=== PATIENT | male | born 1960 | race Caucasian/White ===

== ENCOUNTER 2016-09-12 06:04 | Day surgery (SDC) | payer BC ==
[2016-09-05 15:02] VITALS: BMI 41.5
--- NOTE | 2016-09-11 09:57 | HP ---
[facility] - Chief Complaint Chief Complaint: right knee pain - Past Medical History Allergies/Adverse Reactions: Allergies Allergy/AdvReac Type Severity Reaction Status Date / Time No Known Allergies Allergy Verified 09/05/16 15:02 - Current Medications Current Medications: Medication Instructions Recorded NK [No Known Home Medication] 09/05/16 [facility]ellite Physical Exam - Physical Examination General Appearance: Well Nourished, Well Developed, Alert & Oriented x3 ENT: Clear Lung: Normal air movement Heart: Regular rate & rhythm Extremities: Other (right knee- + swelling, + ttp, decr rom, nvi xrays show severe medial djd) Neurological: Intact, Alert, Oriented [facility]ellite Impression/Plan - Impression/Plan Impression: right knee medial djd Operative Procedure: right medial darrick ukr Date to be Performed: 09/12/16
[2016-09-12] MEDS ORDERED: GABAPENTIN 300 MG CAPSULE (FP) PO ONE (06:21)
[2016-09-12] MEDS ORDERED: ROPIVICAINE 0.2%/MORPH PF/KETOROLAC - 51ML DISP.SYRINGE IA ONE ×2 (06:21→09:40)
[2016-09-12] MEDS ORDERED: TRANEXAMIC ACID 1000 MG/10 ML VIAL IVPUSH ONE (06:21)
[2016-09-12] MEDS ORDERED: CELECOXIB 200 MG CAPSULE PO ONE (06:21)
[2016-09-12] MEDS ORDERED: oxyCODONE HCL 10 MG SUSTAINED ACTING TABLET PO ONE (06:21)
[2016-09-12] MEDS ORDERED: CEFAZOLIN 2 GM in DEXTROSE 5%-WATER - 50 ML IVPB ONE (06:21)
[2016-09-12] MEDS ORDERED: ROPIVACAINE HCL 0.5% 30ML VIAL ONE (06:34)
[2016-09-12] MEDS ORDERED: DEXAMETHASONE SOD PHOSPHATE/PF 10 MG/ML SDV ONE (06:34)
[2016-09-12] MEDS ORDERED: MIDAZOLAM HCL 2 MG/2 ML SINGLE DOSE VIAL ONE (06:34)
[2016-09-12] MEDS ORDERED: ceFAZolin SODIUM 1 GM VIAL ONE ×2 (07:09→08:03)
[2016-09-12] MEDS ORDERED: THROMBIN (BOVINE) 5,000 UNIT VIAL TP ONE ×2 (07:09→08:49)
[2016-09-12] MEDS ORDERED: GELATIN, ABSORBABLE 100 EACH SPONGE TP ONE (07:10)
[2016-09-12] MEDS ORDERED: PROPOFOL 20 ML ONE ×3 (07:41)
[2016-09-12] MEDS ORDERED: ONDANSETRON 4 MG/2 ML VIAL IVPB PRN (09:57)
--- NOTE | 2016-09-12 09:59 | OP ---
Operative Note - Note: Operative Date: 09/12/16 (aaron) Pre-Operative Diagnosis: right knee medial djd Operation: right medial darrick ukr Post-Operative Diagnosis: Same as Pre-op Surgeon: Schuyler Childers Copy Editor: Kaushik Mackey) Anesthesiologist/PRACTICE CLINICIAN: Magui Ramirez Anesthesia: Spinal, Local Specimens Removed: bone fragments Estimated Blood Loss (mls): 100 Operative Report Dictated: Yes
[2016-09-12] MEDS ORDERED: PANTOPRAZOLE 40 MG TABLET (FP) PO SCH (10:00)
[2016-09-12] MEDS ORDERED: MULTIVITAMINS (DAILY MVI) TABLET (FP) PO SCH (10:00)
[2016-09-12] MEDS ORDERED: LACTATED RINGERS SOLUTION 1,000 ML IV SCH (10:00)
--- NOTE | 2016-09-12 10:14 | SPEC ---
DATE OF OPERATION: 09/12/2016 OPERATION: Right knee medial unicompartmental knee replacement with robotic-assisted navigation (MAKOplasty) and patelloplasty. PREOPERATIVE DIAGNOSIS: Degenerative joint disease, right knee. POSTOPERATIVE DIAGNOSIS: Degenerative joint disease, right knee. SURGICAL ATTENDING: Schuyler Childers M.D. ESTHETICIAN/SKIN THERAPIST: Kaushik Mackey MD, and SHAKILA Gonzalez ANESTHESIA: Spinal and regional. CLOSURE: Medial BRANDY components No. 6 femur, No. 6 tibia, 8 mm polyethylene, No. 1 Vicryl to fascia, 0 and 2-0 subcutaneous, and 3-0 Monocryl subcuticular with skin glue to skin, 4-0 undyed Vicryl for pin sites. ESTIMATED BLOOD LOSS: Negligible. TOURNIQUET TIME: Approximately 25 minutes. COMPLICATIONS: No complicaitons. CONDITION: To recovery room in stable condition. PROCEDURE: Patient was taken to the operating room. Spinal and femoral block anesthesia was administered by the anesthesiologist. IV Kefzol and TXA were administered prophylactically prior to the case. A well-padded pneumatic tourniquet was placed on the right proximal thigh. The right lower extremity was prepped and draped in the usual sterile fashion. A 6 cm longitudinal incision was made along the medial retinaculum from mid patella toward the tibial tubercle. Hemostasis was achieved using Bovie cautery. Sharp dissection was carried down to the level of the capsule, which was opened the entire length of incision. Subperiosteal dissection in the anterior medial proximal tibia. Periosteal elevator was used to facilitate this dissection. Partial fat pad excision was performed to gain visualization. A femoral and tibial checkpoint were malleted into place. Two bicortical pins were drilled through small stab incisions into the femur, 1 handbreadth above the patella. Two bicortical pins were drilled into the tibia 1 handbreadth below the tibial tubercle through small stab incisions as well. To these, pins were attached to clamps and the navigation arrays. The knee was then registered with the navigation device by ascertaining the center of rotation of the hip, both the medial and lateral malleoli, at approximately 50 points on the tibia and femur. Registration was within BRANDY parameters, being less than half a millimeter. At this time, the medial osteophytes on both the femur and tibia were removed by use of rongeur. The knee was taken through a range of motion and with stressing the medial compartment open at 0, 30, 60, 90 and 120 degrees. Stress points were obtained in order to develop a flexion / extension and a tightness / looseness graph. The robotic navigation device obtained a virtual tracking of the knee and found that the traction was in excellent position. The components were manipulated virtually in order to obtain a flexion/extension; tightness/looseness graph was then +/- 1 mm. The robot was then brought into the field and registered with the navigation device. The robot was then used to steven the bone on both the femur and the tibia to the specifications and direction of the navigation device. All excess bone, osteophytes, and cartilage were removed, including the medial meniscus. Care was taken to protect the MCL throughout the case. The trial components were then placed into the knee with the appropriate polyethylene plastic trial liner. The knee was taken through a range of motion and the graph on the navigation device was then used again to confirm ideal position of the components and ideal tightness/looseness of the components. The trial components were removed, along with the checkpoints and the array. The knee was exsanguinated with an Esmarch bandage and tourniquet inflated to 175 mmHg. The knee was post-antibiotic irrigated and then dried and then Avitene and Gelfoam were placed to aid in hemostasis. The real components were then cemented in using modern generation cement techniques with antibiotics, cement and pressurization. All excess cement was removed. The knee was thoroughly inspected to remove any excess cement and bone fragments. The real polyethylene component was then clipped into place. Range of motion revealed excellent range of motion and good tensioning throughout. The knee was post-antibiotic irrigated. The fascia was closed using 2-0 Vicryl interrupted suture. The tourniquet was deflated. Total tourniquet time was less than 30 minutes. Hemostasis was obtained. Another dose of TXA was administered. The subcutaneous layer was closed with 2-0 Vicryl, 3-0 Monocryl subcuticular for skin. A pain cocktail was infused throughout the soft tissue. The pin sites were irrigated and closed with 4-0 Vicryl and skin glue was used for all incisions. Sterile Aquacel dressing was placed on all incisions followed by a dressing from the toes to the thigh. Patient was transferred to the recovery room in stable condition. No complications. Elsie [id number]
[2016-09-12] MEDS ORDERED: ACETAMINOPHEN 325 MG TABLET (FP) ONE (11:13)
[2016-09-12] MEDS ORDERED: MAG HYDROX/AL HYDROX/SIMETH 30 ML UNIT-DOSE CUP PO PRN (11:34)
[2016-09-12] MEDS ORDERED: oxyCODONE HCL 5 MG TABLET PO PRN ×2 (11:38→11:39)
[2016-09-12] MEDS: ACETAMINOPHEN 325 MG TABLET (FP) PO SCH ×3 (12:45→23:53)
[2016-09-12] MEDS: CEFAZOLIN 2 GM/D5W 50 ML IVPB SCH ×2 (16:52→23:54)
[2016-09-12] MEDS: SENNOSIDES/DOCUSATE COMBO (SENNA PLUS) TABLET (UD) PO SCH (22:08)
[2016-09-12] MEDS: oxyCODONE HCL 10 MG SUSTAINED ACTING TABLET PO SCH (22:08)
[2016-09-12] MEDS: GABAPENTIN 300 MG CAPSULE (FP) PO SCH (22:09)
[2016-09-13 06:13] VITALS: BP 142/87; PULSE 64; TEMP 97.7
[2016-09-13] MEDS: ACETAMINOPHEN 325 MG TABLET (FP) PO SCH (06:39)
[2016-09-13] MEDS ORDERED: ASPIRIN 325 MG TABLET PO SCH (08:00)
--- NOTE | 2016-09-13 08:00 | PN ---
Progress Note (short form) - Note Progress Note: Ortho Pt seen and examined s/p right medial darrick ukr pod #1 Selected Entries 09/13/16 06:12 Temperature 97.7 F Pulse Rate 64 Respiratory 18 Rate Blood Pressure 142/87 dressing some slight drainage but not to borders, calf soft, nt rom 0-60, nvi a/p PT dvt ppx pain control d/c home today f/u in 1 week
--- NOTE | 2016-09-13 08:01 | DS ---
Physical Examination Vital Signs: Vital Signs Temperature 97.7 F 09/13/16 06:12 Pulse Rate 64 09/13/16 06:12 Respiratory Rate 18 09/13/16 06:12 Blood Pressure 142/87 09/13/16 06:12 O2 Sat by Pulse Oximetry (%) 97 09/13/16 06:12 Discharge Summary Reason For Visit: RIGHT KNEE OSTEOARTHRITIS Procedures: Principal: s/p right medial darrick ukr Hospital Course: admitted for elective right medial darrick ukr, uneventful post-op, stable for d/c Condition: Good - Instructions Diet, Activity, Other Instructions: regular diet keep dressing intact, may shower with aquacel in place weight bearing and range of motion as tolerated ice, elevate ankle pumps Aspirin 325mg daily x 6 weeks compression device at home when not ambulating f/u in the office in 1 week, call for appt: [phone] Referrals: Kaushik Mackey MD [Staff Physician] - Disposition: [facility]NS/HOME HEALTH CARE - Home Medications Comprehensive Discharge Medication List: Ambulatory Orders Aspirin [ASA -] 325 mg PO DAILY@0800 tablet 09/12/16 Oxycodone HCl/Acetaminophen [Percocet 5-325 mg Tablet] 1 - 2 tab PO Q6H #50 tab MDD 8 09/12/16
[2016-09-13] MEDS: SENNOSIDES/DOCUSATE COMBO (SENNA PLUS) TABLET (UD) PO SCH (09:50)
[2016-09-13] MEDS: oxyCODONE HCL 10 MG SUSTAINED ACTING TABLET PO SCH (09:52)
[2016-09-13] MEDS: GABAPENTIN 300 MG CAPSULE (FP) PO SCH (09:53)
== END 2016-09-13 11:54 | disposition home or self-care (01) ==
LOC: FASU 06:04 → FM/S 06:21 → FASU 09-13 11:54
PROVIDERS: ATTEND Orthopaedic Surgery
PROC: 8E0YXBZ Computer Assisted Procedure of Lower Extremity (ICD-10-PCS; 2016-09-12)
PROC: 8E0Y0CZ Robotic Assisted Procedure of Lower Extremity, Open Approach (ICD-10-PCS; 2016-09-12)
PROC: 0SRC0L9 Replacement of Right Knee Joint with Medial Unicondylar Synthetic Substitute, Cemented, Open Approach (ICD-10-PCS; principal; 2016-09-12 08:00)
DX: M17.11 Unilateral primary osteoarthritis, right knee (principal)
CPT/HCPCS: 20985; 27446; C1776; S2900; 73560-TC-RT; 94010; 94760; 97116-GP; 97163-GP